=== PATIENT | female | born 1995 | race African-American/Black ===

== ENCOUNTER → 2020-07-11 10:57 | Outpatient (BNVA) | payer OTHER, SELFPAY | PROVIDERS: PCP Internal Medicine; Referring Provider Internal Medicine; Visit Provider Surgery | DX: E66.01 Morbid (severe) obesity due to excess calories (principal); Z68.41 Body mass index [BMI] 40.0-44.9, adult | CPT/HCPCS: 99212 ==

== ENCOUNTER 2020-07-11 16:53 | Outpatient (REF) | payer OTHER, SELFPAY ==
[2020-07-12 12:02] LABS: H Pylori Breath Test DETECTED (NOT DETECTED)
== END 2020-07-11 16:54 | disposition home or self-care (01) ==
LOC: HO.LNP 16:53
PROVIDERS: Visit Provider Surgery
DX: Z01.818 Encounter for other preprocedural examination (principal)
CPT/HCPCS: 83013

== ENCOUNTER → 2020-07-16 09:09 | Outpatient (BNVA) | payer OTHER, SELFPAY | PROVIDERS: PCP Internal Medicine; Referring Provider Internal Medicine; Visit Provider Dietitian, Registered | DX: Z76.89 Persons encountering health services in other specified circumstances (principal) ==

== ENCOUNTER → 2020-08-13 08:27 | Outpatient (BNVA) | payer OTHER, SELFPAY | PROVIDERS: PCP Internal Medicine; Visit Provider Dietitian, Registered | DX: E66.01 Morbid (severe) obesity due to excess calories (principal); Z68.41 Body mass index [BMI] 40.0-44.9, adult | CPT/HCPCS: 99211 ==

== ENCOUNTER 2020-08-13 10:50 | Outpatient (REF) | payer OTHER, SELFPAY ==
[2020-08-13 11:56] LABS: Basophils Percent Auto 0.3 % (0-2); Eosinophils Absolute Auto 0.2 X10*3/uL (0.0-0.4); Eosinophils Percent Auto 2.3 % (0-4); Hemoglobin 13.7 g/dl (12.0-16.0); Imm Gran Abs Auto 0.02 X10*3/uL (0.00-0.03); Imm Gran Pct Auto 0.2 % (0.0-0.4); Lymphocytes Absolute Auto 3.5 X10*3/uL (1.2-4.9); Lymphocytes Percent Auto 38.6 % (20-40); MANUAL DIFF FLAG SCAN; Mean Corpuscular HGB Conc 31.1 g/dl (31.0-35.0); Mean Corpuscular Hemoglobin 27.5 pg (27.0-33.0); Mean Corpuscular Volume 88.4 fL (80-98); Mean Platelet Volume 10.1 fL (9.4-12.3); Monocytes Absolute Auto 0.6 X10*3/uL (0.1-1.2); Monocytes Percent Auto 6.2 % (2-11); Neutrophils Absolute Auto 4.7 X10*3/uL (2.0-8.3); Neutrophils Percent Auto 52.4 % (45-73); PLT CLUMP 1; Red Blood Count 4.98 X10*6/uL (4.20-5.50); Red Cell Distribution Width 12.7 % (11.0-16.0); SCAN SMEAR FLAG 1
[2020-08-13 12:12] LABS: Platelet Count 258 X10*3/uL (160-400)
[2020-08-13 12:13] LABS: SLIDE REVIEW VERIFIED
[2020-08-13 12:19] LABS: Alanine Aminotransferase 13 U/L (0-31); Alkaline Phosphatase 78 U/L (39-117); Anion Gap 13 (12-20); Aspartate Amino Transferase 13 U/L (5-31); Bilirubin Total 0.3 mg/dL (0.0-1.0); Blood Urea Nitrogen 10 mg/dL (9-16); Calcium 8.8 mg/dL (8.4-10.2); Carbon Dioxide 19 mmol/L (22-29); Chloride 109 mmol/L (96-108); Cholesterol 189 mg/dL; Estimated Glomerular Filt Rate > 60; Glucose Fasting 84 mg/dL (60-99); HDL Cholesterol 44 mg/dL; LDL Cholesterol Calculated 122 mg/dl; Potassium 4.1 mmol/l (3.3-5.1); Sodium 137 mmol/L (135-145); Total Protein 7.2 g/dL (6.5-8.0); Triglycerides 115 mg/dL
[2020-08-15 13:53] LABS: H Pylori Breath Test DETECTED (NOT DETECTED)
== END 2020-08-13 10:51 | disposition home or self-care (01) ==
LOC: HO.LAB 10:50
PROVIDERS: PCP Internal Medicine; Visit Provider Internal Medicine
DX: E11.9 Type 2 diabetes mellitus without complications (principal); K21.9 Gastro-esophageal reflux disease without esophagitis; Z11.0 Encounter for screening for intestinal infectious diseases
CPT/HCPCS: 36415; 80053; 80061; 83013; 85025

== ENCOUNTER → 2020-09-11 08:19 | Outpatient (BNVA) | payer OTHER, SELFPAY | PROVIDERS: PCP Internal Medicine; Visit Provider Physician Assistant | DX: Z76.89 Persons encountering health services in other specified circumstances (principal) ==

== ENCOUNTER → 2020-09-25 08:11 | Outpatient (BNVA) | payer OTHER, SELFPAY | PROVIDERS: PCP Internal Medicine; Visit Provider Dietitian, Registered | DX: Z76.89 Persons encountering health services in other specified circumstances (principal) ==

== ENCOUNTER → 2020-09-26 10:07 | Outpatient (BNVA) | payer OTHER, SELFPAY | PROVIDERS: PCP Internal Medicine; Visit Provider Physician Assistant | DX: Z76.89 Persons encountering health services in other specified circumstances (principal) ==

== ENCOUNTER 2020-10-10 09:03 | Outpatient (REF) | payer OTHER, SELFPAY ==
[2020-10-12 13:47] LABS: H Pylori Breath Test DETECTED (NOT DETECTED)
== END 2020-10-10 09:04 | disposition home or self-care (01) ==
LOC: HO.LNP 09:03
PROVIDERS: PCP Internal Medicine; Visit Provider Physician Assistant
DX: A04.8 Other specified bacterial intestinal infections (principal)
CPT/HCPCS: 83013; 99211

== ENCOUNTER → 2020-10-25 09:54 | Outpatient (BNVA) | payer OTHER, SELFPAY | PROVIDERS: PCP Internal Medicine; Visit Provider Physician Assistant | DX: E66.01 Morbid (severe) obesity due to excess calories (principal); A04.8 Other specified bacterial intestinal infections; Z68.41 Body mass index [BMI] 40.0-44.9, adult | CPT/HCPCS: 99212 ==

== ENCOUNTER → 2020-12-10 14:01 | Outpatient (BNVA) | payer OTHER, SELFPAY | PROVIDERS: PCP Internal Medicine; Visit Provider Advanced Practice Midwife ==

== ENCOUNTER 2021-02-04 14:20 | Outpatient (REF) | payer OTHER, SELFPAY ==
[2021-02-05 14:22] LABS: H Pylori Breath Test NOT DETECTED (NOT DETECTED)
== END 2021-02-04 14:21 | disposition home or self-care (01) ==
LOC: HO.LNP 14:20
PROVIDERS: PCP Internal Medicine; Referring Provider Internal Medicine; Visit Provider Surgery
DX: Z01.818 Encounter for other preprocedural examination (principal); A04.8 Other specified bacterial intestinal infections; E66.01 Morbid (severe) obesity due to excess calories; E55.9 Vitamin D deficiency, unspecified; E51.9 Thiamine deficiency, unspecified; E50.9 Vitamin A deficiency, unspecified; Z68.41 Body mass index [BMI] 40.0-44.9, adult; Z79.899 Other long term (current) drug therapy
CPT/HCPCS: 83013; 99212

== ENCOUNTER → 2021-06-04 08:00 | Outpatient (BNVA) | payer OTHER, SELFPAY | PROVIDERS: Visit Provider Physician Assistant Surgical ==

== ENCOUNTER → 2021-06-05 08:10 | Outpatient (BNVA) | payer OTHER, SELFPAY | PROVIDERS: Visit Provider Physician Assistant Surgical ==

== ENCOUNTER → 2021-07-14 08:07 | Outpatient (BNVA) | payer OTHER, SELFPAY | PROVIDERS: Visit Provider Physician Assistant Surgical ==

== ENCOUNTER → 2021-09-24 14:56 | Outpatient (BNVA) | payer OTHER, SELFPAY | PROVIDERS: PCP Internal Medicine; Visit Provider Advanced Practice Midwife ==

== ENCOUNTER → 2021-11-10 09:44 | Outpatient (BNVA) | payer OTHER, SELFPAY | PROVIDERS: PCP Internal Medicine; Visit Provider Advanced Practice Midwife | DX: Z30.46 Encounter for surveillance of implantable subdermal contraceptive (principal) | CPT/HCPCS: 11983; 81025; J7307 ==

== ENCOUNTER 2021-12-12 14:58 | Outpatient (REF) | payer OTHER, SELFPAY ==
[2021-12-13 04:35] LABS: CT PCR NOT DETECTED (Not Detect.); NG PCR NOT DETECTED (Not Detect.)
[2021-12-13 12:23] LABS: BV Int Neg Control Negative (Negative); BV Int Pos Control Positive (Positive)
[2021-12-15 09:01] LABS: HBc Num1 0.06 S/CO (0.00-0.79); HIV AB/AG Nonreactive (Nonreactive); HIV Num 1 0.08 S/CO (0.00-0.99); Hepatitis B Core Antibody Nonreactive (Nonreactive)
[2021-12-15 09:07] LABS: ~Hepatitis C Antibody Nonreactive (Nonreactive)
[2021-12-15 10:07] LABS: Syphilis Screen Nonreactive (Nonreactive)
== END 2021-12-12 14:59 | disposition home or self-care (01) ==
LOC: HO.LAB 14:58
PROVIDERS: PCP Internal Medicine; Visit Provider Advanced Practice Midwife
DX: Z01.419 Encounter for gynecological examination (general) (routine) without abnormal findings (principal); Z20.2 Contact with and (suspected) exposure to infections with a predominantly sexual mode of transmission
CPT/HCPCS: 36415; 86704; 86780; 86803; 87389; 87480; 87491; 87510; 87591; 87660; 88142

== ENCOUNTER 2022-03-30 11:47 | Outpatient (REF) | payer OTHER, SELFPAY ==
[2022-03-30 15:14] LABS: CT PCR NOT DETECTED (Not Detect.); NG PCR NOT DETECTED (Not Detect.)
[2022-03-31 09:43] LABS: BV Int Neg Control Negative (Negative); BV Int Pos Control Positive (Positive)
== END 2022-03-30 11:48 | disposition home or self-care (01) ==
LOC: HO.LAB 11:47
PROVIDERS: Visit Provider Advanced Practice Midwife
DX: Z30.40 Encounter for surveillance of contraceptives, unspecified (principal); N92.1 Excessive and frequent menstruation with irregular cycle; Z20.2 Contact with and (suspected) exposure to infections with a predominantly sexual mode of transmission; Z97.5 Presence of (intrauterine) contraceptive device; Z72.0 Tobacco use
CPT/HCPCS: 87480; 87491; 87510; 87591; 87660; 99212

== ENCOUNTER 2022-04-21 09:52 | Outpatient (REF) | payer OTHER, SELFPAY ==
--- NOTE | ~2022-04-21 | XR_ITS ---
EXAMINATION: XR LUMBOSACRAL SPINE CLINICAL INFORMATION: Pain COMPARISON: Previous x-ray August 2019 TECHNIQUE: Three views of the lumbosacral spine. FINDINGS: The vertebral bodies and posterior elements are normal. The disc spaces are preserved and the vertebral alignment is normal. The paraspinal soft tissues are normal. XR/XR lumbar spine 2-3V IMPRESSION: Unremarkable examination.
== END 2022-04-21 09:53 | disposition home or self-care (01) ==
LOC: HO.XRAY 09:52
PROVIDERS: PCP Internal Medicine; Visit Provider Internal Medicine
DX: M54.50 Low back pain, unspecified (principal)
CPT/HCPCS: 72100

== ENCOUNTER → 2022-06-16 09:48 | Outpatient (BNVA) | payer OTHER, SELFPAY | PROVIDERS: PCP Internal Medicine; Visit Provider Advanced Practice Midwife | DX: Z30.46 Encounter for surveillance of implantable subdermal contraceptive (principal) | CPT/HCPCS: 11982 ==

== ENCOUNTER 2022-09-04 07:13 | Outpatient (REF) | payer OTHER, SELFPAY ==
[2022-09-04 07:19] LABS: MANUAL DIFF FLAG NO
[2022-09-04 07:52] LABS: Basophils Percent Auto 0.2 % (0-2); Eosinophils Absolute Auto 0.3 X10*3/uL (0.0-0.4); Eosinophils Percent Auto 2.1 % (0-4); Hematocrit 39.9 % (37.0-47.0); Hemoglobin 12.9 g/dl (12.0-16.0); Imm Gran Abs Auto 0.02 X10*3/uL (0.00-0.03); Imm Gran Pct Auto 0.2 % (0.0-0.4); Lymphocytes Absolute Auto 4.6 X10*3/uL (1.2-4.9); Mean Corpuscular HGB Conc 32.3 g/dl (31.0-35.0); Mean Corpuscular Hemoglobin 29.1 pg (27.0-33.0); Mean Corpuscular Volume 90.1 fL (80.0-98.0); Mean Platelet Volume 8.9 fL (9.4-12.3); Monocytes Absolute Auto 0.8 X10*3/uL (0.1-1.2); Neutrophils Absolute Auto 7.4 x10*3/uL (2.0-8.3); Neutrophils Percent Auto 56.5 % (45-73); Platelet Count 281 X10*3/uL (160-400); Red Blood Count 4.43 X10*6/uL (4.20-5.50); Red Cell Distribution Width 12.2 % (11.0-16.0); White Blood Count 13.1 X10*3/uL (4.8-10.8)
[2022-09-04 12:22] LABS: Alanine Aminotransferase 18 U/L (0-31); Albumin Level 3.9 g/dL (3.5-5.0); Alkaline Phosphatase 59 U/L (39-117); Anion Gap 14 (12-20); Aspartate Amino Transferase 16 U/L (5-31); Bilirubin Total 0.3 mg/dL (0.0-1.0); Blood Urea Nitrogen 9 mg/dL (9-16); Carbon Dioxide 23 mmol/L (22-29); Chloride 106 mmol/L (96-108); Cholesterol 197 mg/dL; Estimated Glomerular Filt Rate > 60; Glucose Fasting 77 mg/dL (60-99); HDL Cholesterol 39 mg/dL; LDL Cholesterol Calculated 133 mg/dl; Potassium 4.1 mmol/L (3.3-5.1); Sodium 139 mmol/L (135-145); Thyroid Stimulating Hormone 1.53 uIU/mL (0.32-4.0); Total Protein 6.7 g/dL (6.5-8.0); Triglycerides 128 mg/dL
== END 2022-09-04 07:14 | disposition home or self-care (01) ==
LOC: HO.LAB 07:13
PROVIDERS: PCP Internal Medicine; Visit Provider Internal Medicine
DX: Z13.0 Encounter for screening for diseases of the blood and blood-forming organs and certain disorders involving the immune mechanism (principal); E03.9 Hypothyroidism, unspecified; E78.5 Hyperlipidemia, unspecified; I10 Essential (primary) hypertension
CPT/HCPCS: 36415; 80053; 80061; 84443; 85025

== ENCOUNTER 2022-12-16 09:18 | Outpatient (REF) | payer OTHER, SELFPAY | END 2022-12-16 09:19 | disposition home or self-care (01) | LOC: HO.LNP 09:18 | PROVIDERS: Visit Provider Advanced Practice Midwife | DX: Z13.89 Encounter for screening for other disorder (principal) ==

== ENCOUNTER 2022-12-16 10:03 | Outpatient (REF) | payer OTHER, SELFPAY ==
[2022-12-16 12:23] LABS: HBc Num1 0.09 S/CO (0.00-0.79); HIV AB/AG Nonreactive (Nonreactive); HIV Num 1 0.05 S/CO (0.00-0.99); Hepatitis B Core Antibody Nonreactive (Nonreactive); Syphilis Screen Nonreactive (Nonreactive); ~HepC Num1 0.11 S/CO (0.00-0.79); ~Hepatitis C Antibody Nonreactive (Nonreactive)
[2022-12-16 14:11] LABS: CT PCR NOT DETECTED (Not Detect.); NG PCR NOT DETECTED (Not Detect.)
== END 2022-12-16 10:04 | disposition home or self-care (01) ==
LOC: HO.LAB 10:03
PROVIDERS: PCP Internal Medicine; Visit Provider Advanced Practice Midwife
DX: Z11.4 Encounter for screening for human immunodeficiency virus [HIV] (principal); Z20.2 Contact with and (suspected) exposure to infections with a predominantly sexual mode of transmission
CPT/HCPCS: 0353U; 36415; 86704; 86780; 86803; 87389

== ENCOUNTER 2023-08-25 08:49 | Outpatient (AMB) | payer OTHER, SELFPAY ==
[2023-08-25 08:50] VITALS: BP 120/86; PULSE 95; O2SAT 99; BMI 46.5
--- NOTE | 2023-08-25 08:50 | A.OFFPC_ITS ---
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 [employer]: Not Required per policy Accompanied by: Self / Same As Patient Allergies No Known Allergies Allergy (Verified 08/25/23 08:51) Medication List - Last Reconciled 08/25/23 by Roscoe Ball MD albuterol sulfate 90 mcg/actuation (Ventolin HFA) inhalation DAILY PRN clonidine HCl 0.1 mg PO DAILY hydroxyzine HCl 25 mg PO BID lamotrigine 50 mg PO DAILY sertraline 100 mg PO DAILY zolpidem 5 mg PO BEDTIME PRN Tobacco use date assessed: 08/25/23 Dental Screening Dental Screen Date: 08/25/23 Did you have a dental visit in the last 12 months?: No Did you have a dental problem in the last 6 months where you did not have access to dental care?: No Was dental information given to patient?: Patient has dentist HPI annual exam HPI Details asthma and depression; sees psych; doing well [facility] Medical History (Updated 08/25/23 @ 09:19 by Roscoe Ball MD) Migraine with aura TORI (obstructive sleep apnea) Chronic GERD Chronic GERD Morbid obesity due to excess calories Anxiety Depression Asthma Surgical History History of wisdom tooth extraction History of appendectomy Family History Mother Hypertension Kidney stones Father No problems noted. Brother No problems noted. Brother No problems noted. Brother No problems noted. Brother No problems noted. Brother No problems noted. Sister No problems noted. Sister No problems noted. Sister No problems noted. Sister No problems noted. Sister No problems noted. Sister No problems noted. Other Mental health disorder Social History Housing: House Alcohol intake: never Patient Tobacco Use Status: Current everyday Tobacco user Tobacco use type: Cigarette Cigarettes Per Day: 4 e-Cigarette/Vaping Use: Never Used Second Hand Smoke Exposure: Yes service: No Current occupational status: employed Sexual orientation: Straight/Heterosexual Gender identity: Female Cognitive needs: No Hearing needs: No Vision needs: Yes (glasses) Female Reproductive History Menstrual Age of Menarche: 7 Questionnaire PHQ-9 Over the last 2 weeks, how often have you been bothered by any of the following problems? 1. Little interest or pleasure in doing things: nearly every day 2. Feeling down, depressed, or hopeless: nearly every day 3. Trouble falling or staying asleep, or sleeping too much: nearly every day 4. Feeling tired or having little energy: nearly every day 5. Poor appetite or overeating: nearly every day 6. Feeling bad about yourself - or that you are a failure or have let yourself or your family down: nearly every day 7. Trouble concentrating on things, such as reading the newspaper or watching television: nearly every day 8. Moving or speaking so slowly that other people could have noticed. Or the opposite - being so fidgety or restless that you have been moving around a lot more than usual: nearly every day 9. Thoughts that you would be better off or of hurting yourself in some way: nearly every day Total score: 27 Depression Screening Interpretation: Positive Depression Screening Follow-up: Existing condition and In treatment Depression Screening Done: Yes 59447 - PHQ-9 Billing: Yes Source: Developed by Drs. Adams Howard, Libertad Reed, Alex Pacheco and colleagues, with an educational dorene from [employer]. Thrive Questionnaire Date Thrive assessed: 08/25/23 I am a: Patient What is your living situation today?: I have a steady place to live Within the past 12 months, did the food you bought not last and you didn't have the money to get more?: Sometimes True Within the past 12 months, did you worry whether your food would run out before you got money to buy more?: Never true Do you have trouble paying for medicines?: No Do you have trouble getting transportation to medical appointments?: No Do you have trouble paying your heating and electricity bill?: No Do you have trouble taking care of your child, family member or friend?: No Do you have trouble with day-to-day activities such as bathing, preparing meals, shopping, managing finances, etc.?: No Are you currently unemployed and looking for a job?: No Are you interested in more education?: No Please select the resources that you would like help with: None AUDIT C Alcohol Use Questionnaire (AUDIT-C) 1. How often do you have a drink containing alcohol?: Never Total Score: 0 JUDITH-7 AMB Questionnaire JUDITH-7 Date JUDITH - 7 assessed: 08/25/23 Feeling nervous, anxious, or on edge: 0 = Not at all Not being able to stop or control worryin = Not at all Worrying too much about different things: 0 = Not at all Trouble relaxin = Not at all Being so restless that it is hard to sit still: 0 = Not at all Becoming easily annoyed or irritable: 0 = Not at all Feeling afraid as if something awful might happen: 0 = Not at all Total JUDITH-7 score (0-4 normal; 5-9 mild; 10-14 moderate; 15-21 severe): 0 Source: Developed by Drs. Adams Howard, Libertad Reed, Alex Pacheco and colleagues, with an educational dorene from [employer]. JUDITH-7 Assessment Billing JUDITH-7 Assessment Tool: JUDITH-7 Assessment 16262 Review of Systems Const Denies chills, Denies fatigue, Denies headache(s) and Denies weight loss Eyes Denies change in vision, Denies diplopia and Denies eye pain ENT Denies vertigo, Denies dizziness, Denies headache(s) and Denies nasal discharge Card Denies chest pain, Denies rapid heart rate and Denies dyspnea on exertion Resp Denies chest congestion, Denies cough, Denies pain with cough and Denies dyspnea on exertion GI Denies abdominal pain, Denies hematochezia and Denies change in bowel habits Musc Denies myalgias, Denies arthralgias and Denies joint swelling Skin/Breast Denies lesions and Denies unusual bruising Neuro Denies vertigo, Denies dizziness, Denies headache(s) and Denies focal weakness Endo Denies fatigue Physical exam (Primary Care) Vital Signs: Last Vital Signs Pulse 95 08/25/23 08:50 BP 120/86 08/25/23 08:50 Pulse Ox 99 08/25/23 08:50 Oxygen Delivery Method Room Air 08/25/23 08:50 BMI result Body Mass Index 46.5 Tobacco/Smoking Status: Tobacco use Status Tobacco use date assessed 08/25/23 08/25/23 08:58 Patient Tobacco Use Status Current everyday Tobacco 08/25/23 08:58 Tobacco use type Cigarette 08/25/23 08:58 e-Cigarette/Vaping Use Never Used 08/25/23 08:58 PHQ-9: PHQ-9 Score PHQ-9: Total score 27 08/25/23 09:07 Depression Screening Interpretation: Positive Depression Screening Follow-up: Existing condition and In treatment Thrive Assessment: Date of Thrive Assessment Date Thrive assessed 08/25/23 08/25/23 08:58 Const General: cooperative, healthy appearing and no acute distress Orientation/consciousness: oriented to person, oriented to place and oriented to time HENMT Head: Yes normal to inspection, Yes normocephalic and Yes atraumatic Mouth: Normal oral and palatal mucosa present and tongue normal Throat: Yes posterior oropharynx normal and Yes uvula midline Eyes General: appearance normal, both eyes and all related structures Neck Neck: Yes normal visual inspection, Yes full ROM and Yes no lymphadenopathy Thyroid: Thyroid normal Carotids: normal carotid upstroke Chest Chest palpation & inspection: normal inspection of the chest Resp Effort & Inspection: normal respiratory effort and able to speak in complete sentences Auscultation: clear to auscultation bilaterally Cardio Jugular venous distension: no JVD Palpation: normal PMI Rate: regular rate Rhythm: regular rhythm Heart sounds: S1 normal heart sound present and S2 normal heart sound present GI Inspection: Yes normal to inspection Palpation (GI): Soft to palpation and No hepatosplenomegaly present Auscultation: normal bowel sounds General: Yes no CVA tenderness Back/Spine/Pelvis Back: no CVA tenderness Skin General skin exam: no rashes or lesions noted Neuro General: oriented to person, oriented to place and oriented to time Extrem General: Yes normal to inspection and Yes full ROM Assessment and Plan Assessment & Plan (1) Physical exam: Code(s): Z00.00 - Encounter for general adult medical examination without abnormal findings Plan: do labs (2) Depression: Code(s): F32.A - Depression, unspecified Plan: as per psych (3) Asthma: Code(s): J45.909 - Unspecified asthma, uncomplicated Plan: stable; same rx Orders: Orders Lipid Panel Today E78.5 - Hyperlipidemia, unspecified Complete Blood Count Auto Diff Today D64.9 - Anemia, unspecified Comprehensive [place]. Panel Fast Today N28.9 - Disorder of kidney and ureter, unspecified Thyroid Stimulating Hormone Today E03.9 - Hypothyroidism, unspecified Coding Level of Care Code Est Pt Prev Care 18-39y(45876) Diagnoses Physical exam Z00.00 Depression F32.A Asthma J45.909 Additional Codes JUDITH-7 Assessment Billing - JUDITH-7 Assessment Tool: JUDITH-7 Assessment 19785 ([id number])
== END 2023-08-25 09:13 | disposition home or self-care (01) ==
PROVIDERS: PCP Internal Medicine; Visit Provider Internal Medicine
DX: Z00.00 Encounter for general adult medical examination without abnormal findings (principal); F32.A Depression, unspecified; J45.909 Unspecified asthma, uncomplicated
CPT/HCPCS: 99395

== ENCOUNTER 2023-12-22 09:33 | Outpatient (AMB) | payer OTHER, SELFPAY ==
--- NOTE | 2023-12-22 09:35 | A.OFFVIS_ITS ---
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 Doing well with no concerns. She tries to eat healthy and stays active with exercise. Regular monthly menses 4-6d, w/cramps, not using any self help measures. Currently is not sexually active. She denies vaginal itching and irritation. STI screening offered; she accepts. She feels at home. Living with her best friend. Denies family history of breast, ovarian or colon cancer. Last pap smear 2021, negative. [facility] Medical History Migraine with aura TORI (obstructive sleep apnea) Chronic GERD Chronic GERD Morbid obesity due to excess calories Anxiety Depression Asthma Surgical History History of wisdom tooth extraction History of appendectomy Family History Mother Hypertension Kidney stones Father No problems noted. Brother No problems noted. Brother No problems noted. Brother No problems noted. Brother No problems noted. Brother No problems noted. Sister No problems noted. Sister No problems noted. Sister No problems noted. Sister No problems noted. Sister No problems noted. Sister No problems noted. Other Mental health disorder Social History (Updated 12/22/23 @ 09:53 by Ria Santos CNM) Housing: House Alcohol intake: never Patient Tobacco Use Status: Current everyday Tobacco user Tobacco use type: Cigarette Cigarettes Per Day: 4 e-Cigarette/Vaping Use: Never Used Second Hand Smoke Exposure: Yes service: No Current occupational status: employed Current occupation: [employer] ADVISOR Sexual orientation: Straight/Heterosexual Gender identity: Female Cognitive needs: No Hearing needs: No Vision needs: Yes (glasses) Female Reproductive History Menstrual Age of Menarche: 7 Duration of menses: 3-5 days Date of last menstrual period: 11/30/23 control method: none Total pregnancies: 0 Date of last pap smear: 12/12/21 (neg) Review of Systems Const All systems reviewed & are unremarkable except as noted in HPI and below Reports as per HPI Eyes Reports no additional complaints ENT Reports no additional complaints Card Reports no additional complaints Resp Reports no additional complaints GI Reports as per HPI and Reports no additional complaints Reports as per HPI Musc Reports no additional complaints Skin/Breast Reports as per HPI Neuro Reports no additional complaints Psych Reports no additional complaints Endo Reports no additional complaints [place]/Lymph Reports no additional complaints Aller/Immun Reports no additional complaints Physical Exam Vital Signs: Last Vital Signs BP 110/74 12/22/23 09:37 BMI result Body Mass Index 47.5 Const General: cooperative, healthy appearing, no acute distress, well developed and alert Orientation/consciousness: patient oriented x3 HEENT Head: Yes normal to inspection Eyes General: appearance normal, both eyes and all related structures Neck Neck: Yes normal visual inspection Thyroid: Thyroid normal Chest Chest palpation & inspection: normal inspection of the chest and other (no puckering, dimpling, peau de orange, retraction, discharge, masses) Breast/axilla inspection: normal inspection of the breasts Breast/axilla palpation: normal palpation of the breasts Resp Effort & Inspection: normal respiratory effort GI Inspection: Yes normal to inspection Palpation (GI): Soft to palpation Rectal Exam - Female: deferred General: Yes bladder normal to palpation External Female Exam: normal external appearance and normal appearance of the urethra Speculum Exam - Vagina: normal appearance of the vagina, normal palpation and normal vaginal discharge Speculum Exam - Cervix: normal appearance of the cervix and normal palpation Bimanual exam- vagina & uterus: normal bimanual exam, normal palpation, uterine size normal, bladder normal to palpation, normal palpation and non-tender Bimanual Exam- Adnexa, other: no masses Skin General skin exam: no rashes or lesions noted Rashes: no rashes Neuro General: patient oriented x3 Cognition (Neuro): normal cognition Extrem General: Yes normal to inspection Psych Attitude: cooperative Thought process: Normal thought process present Assessment & Plan Assessment & Plan (1) Encounter for well woman exam with routine gynecological exam: Code(s): Z01.419 - Encounter for gynecological examination (general) (routine) without abnormal findings Plan Discussed: Current recommendations for pap smears per ASCCP guidelines. Breast awareness and periodic breast exams. Maintain a healthy lifestyle including a well balanced diet and routine exercise. Use condoms for STI and prevention. Patient verbalizes understanding and agrees to the plan of care. She was given opportunity to ask questions and all questions were answered to the best of my ability. RTO in one year for annual catering operations manager examination. This note is constructed using voice recognition software. While every effort has been made to ensure accuracy, air quality engineer errors may have been included. Coding Level of Care Code Est Pt Prev Care 18-39y(45306) Diagnoses Encounter for well woman exam with routine gynecological exam Z01.419
[2023-12-22 09:37] VITALS: BP 110/74; BMI 47.5
== END 2023-12-22 10:06 | disposition home or self-care (01) ==
PROVIDERS: Visit Provider Advanced Practice Midwife
DX: Z01.419 Encounter for gynecological examination (general) (routine) without abnormal findings (principal)
CPT/HCPCS: 99395

== ENCOUNTER → 2023-12-22 09:33 | Outpatient (BNVA) | payer OTHER, SELFPAY | PROVIDERS: Visit Provider Advanced Practice Midwife | DX: Z01.419 Encounter for gynecological examination (general) (routine) without abnormal findings (principal) | CPT/HCPCS: 99395 ==

== ENCOUNTER 2025-08-17 08:26 | Outpatient (AMB) | payer OTHER, SELFPAY ==
[2025-08-17 08:37] VITALS: BP 158/82; PULSE 100; RESP 18; O2SAT 97; BMI 48.1
--- NOTE | 2025-08-17 08:37 | A.OFFPC_ITS ---
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 Vocational Rehabilitation Consultant Required: No Accompanied by: Self / Same As Patient Allergies seasonal allergies Allergy (Mild, Uncoded 08/17/25 08:40) headaches Tobacco use date assessed: 08/17/25 Dental Screening Dental Screen Date: 08/17/25 Did you have a dental visit in the last 12 months?: No Did you have a dental problem in the last 6 months where you did not have access to dental care?: No Was dental information given to patient?: No HPI HPI Comments History of Present Illness Details The patient is a 29 year old female presenting for establishment of care and evaluation of a right axillary cyst. She has no known chronic medical problems. The patient reports a cyst under her right arm that first appeared about a month ago as a small, pimple-like bump. Over the past month, it grew significantly and became painful, prompting a visit to an urgent care and subsequently the [place] [facility] a week or two ago due to pain and discomfort. At the ER, the cyst was drained of pus, but the sac was not removed as it was reportedly attached to something and the procedure was too painful. Although the swelling has subsided, she is now experiencing recurrent pain and feels the cyst is starting to grow back. The patient also reports chronic, intermittent pain in her chest and sides. She describes the chest pain as a stabbing sensation in the middle of her chest by the sternum, which at times makes it difficult to breathe. These episodes occur once or twice every couple of months and have been happening since she was a teenager. She notes that a sensation of her heart skipping a beat precedes the onset of the chest pain. Separately, she experiences palpitations, described as heart racing, during anxiety attacks. Previous chest x-rays for these symptoms were reportedly normal. Additional relevant history includes dyspnea on exertion, such as when walking fast or climbing stairs, and intermittent bilateral leg swelling with fluid of unknown etiology. Her surgical history is significant for an appendectomy as a child. Her family history is limited as she was a foster child. The patient works as a BIOLOGICAL SCIENCES INSTRUCTOR. She smokes about half a pack of cigarettes daily. She denies alcohol or marijuana use. For exercise, she walks. Her diet primarily consists of home-cooked baked foods, and she rarely eats out or consumes fried foods. [facility] Medical History (Updated 08/17/25 @ 09:26 by Lashawn Gutierrez MD) Positive H. pylori test Migraine with aura TORI (obstructive sleep apnea) Chronic GERD Morbid obesity due to excess calories Anxiety Depression Asthma Surgical History History of wisdom tooth extraction History of appendectomy Family History Mother Hypertension Kidney stones Father No problems noted. Brother No problems noted. Brother No problems noted. Brother No problems noted. Brother No problems noted. Brother No problems noted. Sister No problems noted. Sister No problems noted. Sister No problems noted. Sister No problems noted. Sister No problems noted. Sister No problems noted. Other Mental health disorder Social History Housing: House Alcohol intake: never Patient Tobacco Use Status: Current everyday Tobacco user Tobacco use type: Cigarette Cigarettes Per Day: 4 e-Cigarette/Vaping Use: Never Used Second Hand Smoke Exposure: Yes service: No Current occupational status: employed Current occupation: BIOLOGICAL SCIENCES INSTRUCTOR Sexual orientation: Straight/Heterosexual Gender identity: Female Cognitive needs: No Hearing needs: No Vision needs: Yes (glasses) Female Reproductive History Menstrual Age of Menarche: 7 Questionnaire PHQ-9 Over the last 2 weeks, how often have you been bothered by any of the following problems? 1. Little interest or pleasure in doing things: several days 2. Feeling down, depressed, or hopeless: more than half the days 3. Trouble falling or staying asleep, or sleeping too much: nearly every day 4. Feeling tired or having little energy: nearly every day 5. Poor appetite or overeating: several days 6. Feeling bad about yourself - or that you are a failure or have let yourself or your family down: several days 7. Trouble concentrating on things, such as reading the newspaper or watching television: nearly every day 8. Moving or speaking so slowly that other people could have noticed. Or the opposite - being so fidgety or restless that you have been moving around a lot more than usual: not at all 9. Thoughts that you would be better off or of hurting yourself in some way: not at all Total score: 14 Source: Developed by Drs. Adams Howard, Libertad Reed, Alex Pacheco and colleagues, with an educational dorene from [employer]. Thrive Questionnaire Date Thrive assessed: 08/17/25 I am a: Patient What is your living situation today?: I have a steady place to live Within the past 12 months, did the food you bought not last and you didn't have the money to get more?: Sometimes True Within the past 12 months, did you worry whether your food would run out before you got money to buy more?: Never true Do you have trouble paying for medicines?: No Do you have trouble getting transportation to medical appointments?: No Do you have trouble paying your heating and electricity bill?: No Do you have trouble taking care of your child, family member or friend?: No Do you have trouble with day-to-day activities such as bathing, preparing meals, shopping, managing finances, etc.?: No Are you currently unemployed and looking for a job?: No Are you interested in more education?: No Please select the resources that you would like help with: None Currently or been in a relationship where the following occur: No concerns reported THRIVE Score: 1 AUDIT C Alcohol Use Questionnaire (AUDIT-C) 1. How often do you have a drink containing alcohol?: Never Total Score: 0 JUDITH-7 AMB Questionnaire JUDITH-7 Date JUDITH - 7 assessed: 08/17/25 Feeling nervous, anxious, or on edge: 1 = Several days Not being able to stop or control worryin = More than half the days Worrying too much about different things: 2 = More than half the days Trouble relaxin = Nearly every day Being so restless that it is hard to sit still: 1 = Several days Becoming easily annoyed or irritable: 3 = Nearly every day Feeling afraid as if something awful might happen: 1 = Several days Total JUDITH-7 score (0-4 normal; 5-9 mild; 10-14 moderate; 15-21 severe): 13 Source: Developed by Drs. Adams Howard, Libertad Reed, Alex Pacheco and colleagues, with an educational dorene from [employer]. Physical exam (Primary Care) Vital Signs: Last Vital Signs Pulse 100 08/17/25 08:37 Resp 18 08/17/25 08:37 BP 158/82 H 08/17/25 08:37 Pulse Ox 97 08/17/25 08:37 Oxygen Delivery Method Room Air 08/17/25 08:37 General: Well-appearing, alert, oriented ?3, in no acute distress. Cardiovascular: RRR, S1-S2 appreciated, no murmurs, rubs or gallops. Respiratory: Lungs clear to auscultation bilaterally, no wheezes, rales or rhonchi. Abdomen: Soft, nontender, nondistended. Normoactive bowel sounds. Right axilla: Few skin tags noted, palpable subcutaneous nodule is present BMI result Body Mass Index 48.1 Tobacco/Smoking Status: Tobacco use Status Tobacco use date assessed 08/17/25 08/17/25 08:43 Patient Tobacco Use Status Current everyday Tobacco 08/17/25 08:43 Tobacco use type Cigarette 08/17/25 08:43 e-Cigarette/Vaping Use Never Used 08/17/25 08:43 PHQ-9: PHQ-9 Score PHQ-9: Total score 14 08/17/25 08:43 Thrive Assessment: Date of Thrive Assessment Date Thrive assessed 08/17/25 08/17/25 08:43 Currently or been in a relationship where the following occur: No concerns repor arnav Coding Level of Care Code New Pt Level 4 (62933) Diagnoses Establishing care with new doctor, encounter for Z76.89 Palpitations R00.2 Sebaceous cyst of right axilla L72.3 Elevated blood pressure reading R03.0 Assessment & Plan Assessment & Plan (1) Establishing care with new doctor, encounter for: Code(s): Z76.89 - Persons encountering health services in other specified circumstances Plan: Patient is a 29-year-old female presenting to establish care. (2) Palpitations: Code(s): R00.2 - Palpitations Category: Medical Plan: Patient reports longstanding history of intermittent palpitations, atypical chest pain and exertional dyspnea as well as intermittent leg swelling of unknown etiology since her teenage years. Denies symptoms at this time. Will further workup with obtaining blood work, TSH, EKG, a 3 day Holter monitor and echocardiogram to further evaluate. Patient also referred to Cardiology. (3) Sebaceous cyst of right axilla: Code(s): L72.3 - Sebaceous cyst Category: Medical Plan: The patient has a history of an inflamed cyst that was incised and drained at an ER, but the sac was not excised. She now reports recurrent pain and cyst gradually increasing in size again. Patient referred to general surgery for evaluation excision. (4) Elevated blood pressure reading: Code(s): R03.0 - Elevated blood-pressure reading, without diagnosis of hypertension Plan: Patient denies history of hypertension, blood pressure in clinic today noted to be 158/82. Patient advised to monitor blood pressure at home, measure twice a day and keep a log. Return to clinic in 2 weeks for nurse visit for blood pressure check and reviewing of the blood pressure readings to further assess. Orders: Orders Hemoglobin A1c Today Z13.1 - Encounter for screening for diabetes mellitus Vitamin D 25-OH (D2 and D3) Today Z13.21 - Encounter for screening for nutritional disorder TSH reflex Free T4 Today R00.2 - Palpitations Complete Blood Count Auto Diff Today Z00.00 - Encounter for general adult medical examination without abnormal findings Comprehensive Met. Panel Today Z00.00 - Encounter for general adult medical examination without abnormal findings Lipid Panel with Reflex Today Z13.220 - Encounter for screening for lipoid disorders ECG 12 lead EKG Today R00.2 - Palpitations ECG 3 day holter monitor Today R00.2 - Palpitations CA echo transthoracic complete Today R00.2 - Palpitations Magnesium Today R00.2 - Palpitations Referrals Cardiology Referral R00.2 - Palpitations General Surgery Referral L72.0 - Epidermal cyst Medications: New blood pressure monitor (Blood Pressure Kit) As directed 1 ea 0RF
== END 2025-08-17 09:15 | disposition home or self-care (01) ==
LOC: HO.HMCH 08:26
PROVIDERS: PCP Internal Medicine; Visit Provider Student in an Organized Health Care Education/Training Program
DX: Z76.89 Persons encountering health services in other specified circumstances (principal); R00.2 Palpitations; L72.3 Sebaceous cyst; R03.0 Elevated blood-pressure reading, without diagnosis of hypertension

== ENCOUNTER → 2025-08-22 10:06 | Outpatient (REF) | payer OTHER, SELFPAY ==
--- NOTE | 2025-08-22 10:13 | ECG_ITS ---
Test Reason : PALPITATIONS Blood Pressure : */* mmHG Vent. Rate : 87 BPM Atrial Rate : 87 BPM P-R Int : 172 ms QRS Dur : 88 ms QT Int : 380 ms P-R-T Axes : 61 28 59 degrees QTcB Int : 457 ms Normal sinus rhythm Normal ECG No previous ECGs available Referred By: Lashawn Gutierrez Electronically Signed By: JAYMIE LINDSEY MD
[2025-08-22 10:50] LABS: MANUAL DIFF FLAG NO
[2025-08-22 11:05] LABS: Hematocrit 44.1 % (37.0-47.0); Hemoglobin 14.4 g/dl (12.0-16.0); Imm Gran Abs Auto 0.04 X10*3/uL (0.00-0.03); Imm Gran Pct Auto 0.4 % (0.0-0.4); Lymphocytes Absolute Auto 2.5 X10*3/uL (1.2-4.9); Mean Corpuscular HGB Conc 32.7 g/dl (31.0-35.0); Mean Corpuscular Hemoglobin 28.6 pg (27.0-33.0); Mean Corpuscular Volume 87.7 fL (80.0-98.0); NRBC Abs Auto 0.000 X10*3/uL (0.0-0.012); NRBC Pct Auto 0.0 /100WBC (0.0-0.2); Platelet Count 304 X10*3/uL (160-400); Red Blood Count 5.03 X10*6/uL (4.20-5.50); White Blood Count 9.2 X10*3/uL (4.8-10.8)
[2025-08-22 11:50] LABS: Alanine Aminotransferase 24 U/L (0-31); Albumin Level 4.3 g/dL (3.5-5.0); Alkaline Phosphatase 69 U/L (39-117); Anion Gap 9 (12-20); Aspartate Amino Transferase 30 U/L (5-31); Blood Urea Nitrogen 6 mg/dL (9-16); Calcium 9.2 mg/dL (8.4-10.2); Carbon Dioxide 22 mmol/L (22-29); Chloride 110 mmol/L (96-108); Cholesterol 208 mg/dL (<200); Estimated Glomerular Filt Rate > 60; HDL Cholesterol 44 mg/dL (>40); Magnesium 2.3 mg/dL (1.6-2.6); Potassium 4.1 mmol/L (3.3-5.1); Sodium 137 mmol/L (135-145); Total Protein 7.8 g/dL (6.5-8.0); Triglycerides 108 mg/dL (<150)
[2025-08-22 12:49] LABS: Reflex LDLD? No
== END ==
LOC: HO.CARD 10:06
PROVIDERS: PCP Student in an Organized Health Care Education/Training Program; Visit Provider Student in an Organized Health Care Education/Training Program
DX: L72.3 Sebaceous cyst (principal); R00.2 Palpitations; Z13.1 Encounter for screening for diabetes mellitus; Z13.21 Encounter for screening for nutritional disorder; Z13.220 Encounter for screening for lipoid disorders; Z13.6 Encounter for screening for cardiovascular disorders
CPT/HCPCS: 36415; 80053; 80061; 82306; 83036; 83735; 84443; 85025; 93005

== ENCOUNTER → 2025-08-22 10:13 | Outpatient (BNV) | payer OTHER, SELFPAY | PROVIDERS: PCP Student in an Organized Health Care Education/Training Program; Visit Provider Internal Medicine Cardiovascular Disease | DX: R00.2 Palpitations (principal) | CPT/HCPCS: 93010 ==

== ENCOUNTER 2025-08-22 12:37 | Outpatient (AMB) | payer OTHER, SELFPAY ==
--- NOTE | 2025-08-22 12:41 | A.OFFVIS_ITS ---
Vital Signs 3 08/22/25 12:47 Height 5 ft 7 in Weight 302 lb 4 oz BMI 47.3 BP 138/80 Blood Pressure Location Lt brachial Position Sitting Pulse 98 Intake Visit Reasons: right armpit cyst that grows in size Intake Note: Patient is seen in office for evaluation of an abscess of the right axilla. Pt c/o: onset for one month, was seen by urgent care at the time was I&D and given abx, currently is healed, still feels a lump in the area that would like to have removed Loss Prevention Consultant Required: No Accompanied by: Self / Same As Patient Allergies seasonal allergies Allergy (Mild, Uncoded 08/22/25 12:46) headaches Medication List - Last Reconciled 08/22/25 by Zuhair Elizalde MD albuterol sulfate 90 mcg/actuation (Ventolin HFA) inhalation DAILY PRN blood pressure monitor (Blood Pressure Kit) As directed HPI Comments Details: Patient reports longstanding history of a cyst involving her right axilla. It became infected and required drainage. It has since healed but she desires definitive surgical care. No history of trauma or surgery to the region. [facility] Medical History Positive H. pylori test Migraine with aura TORI (obstructive sleep apnea) Chronic GERD Morbid obesity due to excess calories Anxiety Depression Asthma Surgical History History of wisdom tooth extraction History of appendectomy Family History Mother Hypertension Kidney stones Father No problems noted. Brother No problems noted. Brother No problems noted. Brother No problems noted. Brother No problems noted. Brother No problems noted. Sister No problems noted. Sister No problems noted. Sister No problems noted. Sister No problems noted. Sister No problems noted. Sister No problems noted. Other Mental health disorder Social History Housing: House Alcohol intake: never Patient Tobacco Use Status: Current everyday Tobacco user Tobacco use type: Cigarette Cigarettes Per Day: 4 e-Cigarette/Vaping Use: Never Used Second Hand Smoke Exposure: Yes service: No Current occupational status: employed Current occupation: JAVA WEB USER INTERFACE DEVELOPER Sexual orientation: Straight/Heterosexual Gender identity: Female Cognitive needs: No Hearing needs: No Vision needs: Yes (glasses) Female Reproductive History Menstrual Age of Menarche: 7 Review of Systems Const All systems reviewed & are unremarkable except as noted in HPI and below Physical Exam Vital Signs: Last Vital Signs Pulse 98 08/22/25 12:47 BP 138/80 08/22/25 12:47 BMI result Body Mass Index 47.3 Const General: cooperative, healthy appearing and comfortable Nutritional Appearance: obese morbidly obese HEENT Head: Yes normal to inspection Ears: hearing grossly normal bilaterally General nose exam: Normal external nose present Face and sinus: Yes normal facial exam Eyes General: appearance normal, both eyes and all related structures Pupils: Equal, round and reactive pupils present EOM: EOMs intact bilaterally Neck Neck: Yes normal visual inspection Chest Chest/axillae images: 2 1. Right axillary mass 2-3cm Resp Effort & Inspection: normal respiratory effort and able to speak in complete sentences Cardio Rate: regular rate Rhythm: regular rhythm GI Inspection: Yes normal to inspection Neuro Cranial nerves: Yes Equal, round and reactive pupils present Assessment & Plan Assessment & Plan (1) Sebaceous cyst of right axilla: Code(s): L72.3 - Sebaceous cyst Category: Medical Plan: I offered the patient excisional biopsy of her right axillary cyst. I reviewed with her the risks involved. These include but are not limited to bleeding, infection, cyst recurrence, chronic pain and unsightly scarring. She indicated that she understood. She told me she accepted the risks and still wished to proceed with surgery. Coding Level of Care Code New Pt Level 3 (10693) Diagnoses Sebaceous cyst of right axilla L72.3 Time Spent (min) 30 Comment Patient visit, record review and coordination of care
[2025-08-22 12:47] VITALS: BP 138/80; PULSE 98; BMI 47.3
== END 2025-08-22 12:50 | disposition home or self-care (01) ==
LOC: HO.HGS 12:38
PROVIDERS: PCP Student in an Organized Health Care Education/Training Program; Visit Provider Surgery
DX: L72.3 Sebaceous cyst (principal)
CPT/HCPCS: 99204

== ENCOUNTER → 2025-08-31 10:17 | Outpatient (REF) | payer OTHER, SELFPAY | LOC: HO.CARD 10:17 | PROVIDERS: PCP Student in an Organized Health Care Education/Training Program; Visit Provider Student in an Organized Health Care Education/Training Program | DX: R00.2 Palpitations (principal) | CPT/HCPCS: 93242 ==

== ENCOUNTER → 2025-08-31 10:21 | Outpatient (BNV) | payer OTHER, SELFPAY | PROVIDERS: PCP Student in an Organized Health Care Education/Training Program; Visit Provider Internal Medicine | DX: R00.2 Palpitations (principal) | CPT/HCPCS: 93244 ==